=== PATIENT | male | born 1995 | race Caucasian/White ===

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

== ENCOUNTER → 2017-01-22 | Outpatient (CLI) | payer OTHER ==
--- NOTE | 2017-01-22 13:18 | DIAGNOSTIC IMAGING REPORT ---
LEFT ANKLE MIN 3 VIEWS CLINICAL HISTORY: LEFT ANKLE PAIN pain COMPARISON: None. DISCUSSION: Possible 3 mm osteochondral defect articular services medial tibia. All remaining osseous structures are unremarkable. Subtalar joint is intact. There is no evidence for soft tissue swelling. IMPRESSION: Possible small 3 mm osteochondral defect articular surface of the medial tibia. Study is otherwise negative. The above report was generated using voice recognition software. It may contain grammatical, syntax or spelling errors. Electronically signed by: Bill Carson M.D. 01/22/2017 1:15 PM Dictated Date/Time: 01/22/2017 1:13 PM LEFT ANKLE MIN 3 VIEWS CLINICAL HISTORY: LEFT ANKLE PAIN COMPARISON: None. DISCUSSION: Mild bimalleolar soft tissue swelling is suggested. The bones and joint spaces appear intact. There is no evidence of fracture or dislocation. Ankle mortise appears normal. IMPRESSION: No evidence of an acute bony process. Electronically signed by: Trenton Trammell M.D. 07/24/2015 4:03 PM LEFT ANKLE MIN 3 VIEWS CLINICAL HISTORY: LEFT ANKLE PAIN COMPARISON: 07/24/2015. DISCUSSION: Mild bimalleolar soft tissue swelling is suggested. The bones and joint spaces appear intact. There is no evidence of fracture or dislocation. Ankle mortise appears normal. IMPRESSION: No acute bony abnormality. 3 mm osteochondral defect medial articular services distal tibia possibly pre-existing. Electronically signed by: Bill Carson M.D. 01/22/2017 1:17 PM Dictated Date/Time: 01/22/2017 1:13 PM
== END | disposition home or self-care (01) ==
LOC: C.RDSM 01-21 13:57
PROVIDERS: ATTEND Internal Medicine
DX: M25.572 Pain in left ankle and joints of left foot (principal)

== ENCOUNTER → 2017-02-06 | Outpatient (CLI) | payer OTHER ==
--- NOTE | 2017-02-06 07:55 | DIAGNOSTIC IMAGING REPORT ---
LEFT LOWER EXT NONJOINT W/O HISTORY: 21 years-old Male [employer] COMPARISON: Left ankle radiographs 01/22/2017, left heel radiographs 10/24/2016 TECHNIQUE: Multiplanar multisequence noncontrast MR images of the left hindfoot were obtained. FINDINGS: There is a small ankle joint effusion. Scattered patchy areas of edema-like increased increased T2 marrow signal are seen within the medial malleolus, distal posterior tibial plafond, posterior facet of the talus, posterior superior calcaneus and distal fibula without associated fracture. Additionally, there is a 1.3 x 0.9 x 1.8 cm os trigonum with mild amount of edema seen at the synchondrosis with the posterior aspect of the talus suggesting os trigonum syndrome with moderate amount of associated fluid within the posterior recess. Mild bone marrow edema is also seen within the plantar aspect of the calcaneus adjacent to the plantar fascial insertion site. There is thickening of the medial cord plantar fascia with intermediate intrasubstance T2 signal and mild surrounding edema, nicely seen on image 26 of the coronal STIR series compatible with acute on chronic plantar fasciitis with minimal spurring of the plantar insertion site about the calcaneus. No high-grade or full-thickness plantar fascia tear is seen. No evidence of plantar fibromatosis. The imaged Achilles tendon is intact. The tibialis posterior, flexor digitorum longus and flexor hallucis longus tendons are intact. There is trace fluid surrounding the flexor digitorum longus along the infra malleolar groove suggesting tenosynovitis. The peroneal longus and brevis tendons are intact. There is mild thickening with intermediate T2 signal of the peroneus brevis tendon compatible with tendinosis. The extensor tendons are intact. There is thickening with intermediate T2 signal of the anterior talofibular ligament compatible with chronic sprain. There is also evidence of chronic sprain involving the calcaneofibular ligament. Posterior talofibular ligament and syndesmotic ligaments are intact. IMPRESSION: 1. Moderate acute on chronic plantar fasciitis with mild enthesopathy of the plantar insertion site about the calcaneus. Mild associated adjacent bone marrow edema of the plantar calcaneus is likely reactive. 2. Evidence of os trigonum syndrome with moderate amount of fluid within the posterior recess and small joint effusion. 3. Scattered patchy areas of edema-like bone marrow signal throughout the hindfoot as above without fracture are likely reactive changes with bone marrow contusion also in the differential. 4. Chronic sprains of the anterior talofibular and calcaneal fibular ligaments. The above report was generated using voice recognition software. It may contain grammatical, syntax or spelling errors. Electronically signed by: Cristian Leonardo M.D. 02/06/2017 7:53 AM Dictated Date/Time: 02/06/2017 7:41 AM
== END | disposition home or self-care (01) ==
LOC: C.MRI 06:10
PROVIDERS: ATTEND Internal Medicine
DX: M72.2 Plantar fascial fibromatosis (principal); Q68.8 Other specified congenital musculoskeletal deformities

== ENCOUNTER → 2017-02-24 | Outpatient (CLI) | payer OTHER | END | disposition home or self-care (01) | LOC: C.RDSM 12:00 | PROVIDERS: ATTEND Physical Medicine & Rehabilitation Sports Medicine | DX: S83.511A Sprain of anterior cruciate ligament of right knee, initial encounter (principal); X58.XXXA Exposure to other specified factors, initial encounter ==

== ENCOUNTER → 2017-02-27 | Outpatient (CLI) | payer OTHER ==
--- NOTE | 2017-02-27 13:24 | DIAGNOSTIC IMAGING REPORT ---
MRI OF THE RIGHT KNEE WITHOUT CONTRAST CLINICAL HISTORY: Tear of anterior cruciate ligament. COMPARISON STUDY: Right knee radiographs February 24, 2017. TECHNIQUE: Utilizing a 1.5 Fifi magnet and dedicated coil, multiplanar, multiecho imaging of the right knee was performed without intravenous or intraarticular contrast. FINDINGS: Alignment of the right knee is anatomic. This exam is mildly compromised by motion artifact. There is a large right knee joint effusion. There is focal moderate marrow edema within the anterior aspect of the lateral femoral condyle and posterior aspect of the lateral tibial plateau which reflects no edema related to bone contusions. There is a complete tear of the anterior cruciate ligament. The posterior cruciate ligament is intact. The medial collateral ligament and lateral collateral ligament complex are also intact. The menisci are suboptimally assessed on this examination but no meniscal tear is identified. Although the the contusion of the lateral femoral condyle, no additional chondral abnormalities are present. Extensor mechanism is intact. Soft tissue edema is noted posterior to the knee. Note is made of minimal edema within the lateral aspect of the fibular head. No cyst was made of increased T2 signal within the musculature lateral to the proximal shaft of the fibula. IMPRESSION: 1. Complete tear of the anterior cruciate ligament. 2. Large right knee joint effusion. 3. Typical bone contusion seen in the setting of an ACL tear with marrow edema within the lateral femoral condyle and lateral tibial plateau. No fracture. 4. Minimal marrow edema within the lateral aspect of the fibular head and mild adjacent muscular signal abnormality could reflect a muscular strain. 4. No meniscal tear identified although exam mildly compromised by motion artifact. Electronically signed by: Lester Connell M.D. 02/27/2017 1:23 PM Dictated Date/Time: 02/27/2017 11:57 AM
== END | disposition home or self-care (01) ==
LOC: C.MRI 10:53
PROVIDERS: ATTEND Physical Medicine & Rehabilitation Sports Medicine
DX: S83.511A Sprain of anterior cruciate ligament of right knee, initial encounter (principal); X58.XXXA Exposure to other specified factors, initial encounter; M25.461 Effusion, right knee

== ENCOUNTER → 2017-03-18 | Day surgery (SDC) | payer OTHER ==
[2017-03-06 11:09] VITALS: Ht 182.9 cm; Wt 75.0 kg
[~2017-03-18] VITALS: Ht 182.9 cm; Wt 75.0 kg
[~2017-03-18] MED LIST changes: +ATROPINE SULFATE 0.1 MG/ML 5ML SYR IV PRN; +BUPIVACAINE/EPINEPHRINE 0.5% MPF 1:200,000 30 ML VIAL ONE; +CEFAZOLIN 2000 MG/60 ML D5W IV SCH; +CEFTRIAXONE 2000MG IV SCH; +CEFTRIAXONE SOD 2 GM VIAL IV ONE; +DEXAMETHASONE SOD INJ 4 MG/ML VIAL IV PRN; +DEXAMETHASONE SOD INJ 4 MG/ML VIAL ONE; +EpHEDrine SULFATE INJ 50 MG/ML AMP IV PRN; +EpINEphrine INJ 1MG/ML AMP 1 MG/ML AMP ONE; +FENTANYL CITRATE INJ 50 MCG/1 ML 2 ML VIAL ONE; +KETOROLAC TROMETHAMINE 30 MG/ML VIAL IV. PRN; +LABETALOL HCL IV 5 MG/ML 20ML IV PRN; +LACTATED RINGER'S 1000ML 1,000 ML IV SCH; +LIDOCAINE HCL 1% MPF 2 ML VIAL ONE; +LIDOCAINE HCL 2% 2 ML VIAL (20MG/ML) ONE; +METOCLOPRAMIDE HCL INJ 5 MG/ML 2 ML VIAL IV PRN; +MIDAZOLAM HCL 1 MG/ML 2ML VIAL ONE; +MoRPHine SULFATE 10 MG/ML CARP/VIAL IV PRN; +ONDANSETRON INJ 2 MG/ML 2 ML VIAL IV PRN; +ONDANSETRON INJ 2 MG/ML 2 ML VIAL ONE; +OXYCODONE/ACETAMINOPHEN 5-325 TAB PO PRN; +PHENYLEPHRINE 100MCG/ML 5ML SYR IV PRN; +PROPOFOL IV EMULSION 10 MG/ML 20 ML VIAL IV ONE; +ROPIVACAINE 0.5% 5 MG/ML 30 ML VIAL ONE; +SODIUM CHLORIDE 0.9% 1000ML 1,000 ML IV SCH
--- NOTE | 2017-03-18 06:45 | History & Physical Bridge Note ---
H&P Re-Evaluation Bridge Note: I have examined the patient, reviewed the History & Physical and in the interval since the performance of the History & Physical I have noted the following changes of clinical significance: Patient greeted in registration area prior to entry into [facility]. no changes noted. consent in chart.No changes noted
--- NOTE | 2017-03-18 06:46 | Discharge Instructions ---
Discharge Instructions Date of Service Mar 18, 2017. Visit Reason for Visit: Right Knee Acl Tear Discharge Discharge Diagnosis / Problem: same Discharge Goals Goal(s): Decrease discomfort, Improve function Medications Stopped Medications Name(s): na Restart Stopped Medication(s): use scripts as directed Activity Recommendations Activity Limitations: as noted below Lifting Limitations: until after follow-up appointment Exercise/Sports Limitations: until after follow-up appointment May Resume Sexual Activity: after follow-up appointment Shower/Bathe: keep incision dry Driving or Machine Use: Weightbearing Status: Right partial wear brace Anesthesia . Post Anesthesia Instructions: If you have had General Anesthesia or IV Sedation: * Do not drive today. * Resume driving when surgeon permits. * Do not make important decisions or sign legal documents today. * Call surgeon for: 1. Temperature elevations greater than 101 degrees F. 2. Uncontrollable pain. 3. Excessive bleeding. 4. Persistent nausea and vomiting. 5. Medication intolerance (nausea, vomiting or rash). * For nausea and vomiting use only clear liquids such as: tea, soda, bouillon until nausea subsides, then gradually increase diet as tolerated. * If you have any concerns or questions, call your surgeon's office. If physician is unavailable and it is an emergency, call 911 or go to the nearest emergency room. . Instructions / Follow-Up Instructions / Follow-Up The following instructions are a useful guide to questions you may have after your Anterior Cruciate Ligament Reconstruction surgery. If you have any questions contact the office at . ACTIVITY RECOMMENDATIONS: * Heavy manual labor is not permitted until 4-6 months after surgery. * Sports are not permitted until 6-9 months after surgery. * Return to activity is individualized. * DRIVING: Driving is not permitted until 3-4 weeks after surgery at a minimum. Please ask your doctor when it is safe to resume driving. If you have an automatic vehicle and your left leg has been operated on, then you may begin driving as soon as you are comfortable and can drive safely. * BATHING: You may shower or sponge-bathe immediately after surgery. The dressing will need to be covered with a plastic bag or plastic wrap until the dressing is changed on the fourth or fifth day after surgery. Once the dressing has been changed on the fourth or fifth day after surgery, you may shower and get the incision wet. * Wash with regular soap and water. * Do not bathe (submerge the incision), soak, swim or use a hot tub until the incision is completely healed over with normal skin and the doctor has given the OK to proceed. * There is no need to apply any ointments, powders or salves to your incision. * Do not apply alcohol or hydrogen peroxide directly to the incision. Diluted peroxide (50:50 mixture with sterile saline) may be used to clean dried blood from around the incision area. WORK/SCHOOL: * You may return to sedentary work or school when you are feeling comfortable. This is usually 3-7 days after surgery. * Expect increased discomfort with increased activity. Continue to elevate and ice the leg as much as possible. DIET: * Resume previous diet. MEDICATIONS: * You will have a prescription for pain medication and an anti-inflammatory medication after surgery. Use the pain pills for severe pain and the anti-inflammatory for less severe pain. * Once the pain pills have run out, try to use the anti-inflammatory. If this is not effective then contact the office for assistance. * The pain medication may cause nausea, constipation and sleepiness. You should see how they affect you before driving or similar activity. * The anti-inflammatory may cause stomach upset and bleeding. If this occurs, let your doctor know immediately . * Some patients may need blood clot prevention. This can be done with either a pill or a simple shot. Your doctor will advise you on when to begin these medications and how to take them. * Do not take aspirin or other anti-inflammatory products (i.e. Advil or Aleve ) if taking blood thinner medication. * Take a stool softener like Colace or a stimulant like Senokot to prevent constipation. SPECIAL CARE INSTRUCTIONS: The following instructions are a useful guide to questions you may have after your surgery. If you have any questions contact the office at . ICE: * You have the option of an ice cooler, gel packs or ice bags. * If you have an ice cooler, refer to the instructions for that device. * If you do not have an ice cooler, then you will need to use ice bags or gel packs. * Do not apply ice directly to the skin. * Use a thin dressing or stockinet between the skin and ice bag. * Apply ice for 20-30 minutes and repeat every 2-4 hours. This is especially important for the first 7-10 days after surgery. * Once the pain improves, use ice as needed. * The ice cooler can be used continuously. ELEVATION: * Keep your leg elevated at or above the level of your heart as much as possible. * Expect some increased discomfort and swelling if you are standing for any length of time. * When lying down, avoid placing anything under your knee. Rather, prop your leg up by placing several pillows under your heel or calf. DRESSING: * Your dressing will be changed at your first therapy appointment approximately 4-5 days after surgery. * Band-Aids, tape strips or gauze may be applied. You may then change your dressing daily. * Always wash your hands prior to touching the incision area. * Reapply dressing followed by the Daniel wrap or [employer]hospital insurance representative stockinet, ice cooling pad and then the brace. * Once the stitches are removed, you may leave the wound open to air or cover with an Daniel Bandage or [employer]hospital insurance representative stockinet. * If you have been given a white elastic stocking (CORRY hose), wear as much as possible for the first 1-3 weeks depending on swelling. * Expect some bloody drainage for the first few days after surgery. * Leave the tape strips in place for 5-7 days. * Band-Aids and gauze may be changed daily. CRUTCHES: * You will need to use crutches after surgery. * Until your first doctor's appointment, you must use your crutches at all times when walking and should put no more than 50% of your normal weight on the surgical leg. * After your first doctor's appointment, you may gradually progress to full weight bearing and discontinue crutches as tolerated under the guidance of your therapist. * If you have had a microfracture procedure done, you may be advised to be non- weight bearing for up to 6 weeks. BRACE: * After surgery, you will be placed into a range of motion brace locked with your leg straight. This brace is to be worn at all times when walking (even with the crutches) and sleeping until your first doctors appointment. * The brace may be removed for therapy. * After your first therapy appointment, your therapist will open the brace to allow bending of the knee once your muscles are working better. * Until your first doctor's appointment, you should sleep with your brace locked with your knee fully straight. * If you have chosen to use a functional ACL brace then this brace will be supplied about 2-3 months after your surgery. During that time, you will attend therapy 2- 3 times per week. You will also need to do daily exercises for range of motion and strength as instructed. PROBLEMS/QUESTIONS: * If you have any problems such as severe pain, numbness, tingling or high fevers or if you have any questions, please contact the office at [phone]. * It is not uncommon to have some numbness and tingling after the surgery especially if you have had a nerve block done. This should gradually improve over the first 1- 2 days. If this persists longer or worsens then contact the office. FOLLOW UP VISIT: * If not already scheduled, please call the office at to schedule follow-up appointments for approximately 10 days and one month after surgery followed by monthly appointments thereafter. Diet Recommendations Recommended Home Diet: resume previous diet Procedures Procedures Performed: acl see op note Pending Studies Studies pending at discharge: no Medical Emergencies . Who to Call and When: Medical Emergencies: If at any time you feel your situation is an emergency, please call 911 immediately. . Non-Emergent Contact Non-Emergency issues call your: Specialist Call Non-Emergent contact if: you have a fever, temperature is above 101.5, wound has increased drainage, wound has increased redness, wound has increased pain . . "Provider Documentation" section prepared by Narayan Barroso. .
--- NOTE | 2017-03-18 11:07 | [facility] Post Operative Brief Note ---
Immediate Operative Summary Operative Date Mar 18, 2017. Pre-Operative Diagnosis Right Knee ACL Tear Post-Operative Diagnosis Same Procedure(s) Performed Right Knee Arthroscopic Anterior Cruciate Ligament Reconstruction With Patellar Tendon Autograft/EUA Surgeon Dr. Barroso Installation Engineer Surgeon(s) Dr. Bosch; Barry Chun PA-C Estimated Blood Loss 50 mL Findings acl tear/chondralmalacia medial odd facet patella Fluids (cc crystalloids) 900cc Specimens None Drains none Anesthesia LMA/block Complication(s) None Disposition Recovery Room / PACU
--- NOTE | 2017-03-18 11:28 | OPERATIVE REPORT ---
DATE OF OPERATION: 03/18/2017 SURGEON: Dr. Barroso. CHIPS SCREEN TENDER: Danitza. SECOND CHIPS SCREEN TENDER: Marco Chun PA-C PREOPERATIVE DIAGNOSIS: Subacute anterior cruciate ligament tear, right knee. POSTOPERATIVE DIAGNOSIS: Same. OPERATIONS PERFORMED: 1. Exam under anesthesia. 2. Diagnostic arthroscopy. 3. Arthroscopic chondroplasty offset patella. 4. Endoscopic ACL reconstruction using central one-third patellar tendon autograft. 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 Physical exam, x-ray and MRI consistent with ACL injury. He has full range of motion at present, good quad tone, good hamstring tone. DESCRIPTION OF PROCEDURE: The patient appropriately identified, site verified, consent verified, 2 grams of Ancef confirmed as being given. The knee was examined revealing a grossly positive Andrew, a grade 1 pivot, negative medial or lateral collateral injury, negative posterolateral or posteromedial injury, PCL was normal. He was then prepped and draped in usual routine fashion. Tourniquet inflated to 275 mmHg after exsanguination of limb with a rubber Esmarch bandage for a total of 69 minutes. An anterior approach to the extensor mechanism was made slightly based medially. Full thickness flaps raised, peritenon opened and then central 1/3 patellar tendon then harvested with bone blocks being 20 x 10 x 5 off the patella and 30 x 10 x 5 off the tibia. They were tagged with #2 Ethibond on the tibial side and the TightRope on the patellar side. It was then placed in a sterile specimen container. It fit through 11 mm tibial tunnel and 10 mm femoral tunnel. The knee was then scoped. Inframedial and infralateral portals made through the harvest site. Inspection of the joint revealed the opposite side injury to the chondromalacia was probably unrelated. It was debrided. Rest of the patella was normal. The medial and lateral gutters were clean. The medial meniscus had some minor posterior edge fraying that did not require any surgery. The articular condyle medially and the medial tibial plateau were excellent. The PCL was intact. The stump of the ACL was a high femoral tear. It was debrided. Limited notchplasty was performed. The lateral meniscus was normal. The lateral condyle was normal. The guide was then placed at 65 mm in the anteromedial aspect and the subperiosteal aspect of the tibia then made. A good horizontal position and medial position was made and 11 mm tunnel made. All the bone debris removed. The stump of the ACL origin off the femur was left in place and the transtibial technique allowed this to be placed right in the center, guide pin passed, was then drilled with the drill bit but that had cracked and the pieces were removed without any difficulty verified by x-ray. It was then drilled with another drill bit and a 30 mm socket made. All bone debris removed. The graft was then passed with the Arthrex passer and then secured on the femur with a TightRope, deployed in excellent position and good fixation. It was then TightRope into position and the patellar block docked very well. The graft was then tensioned at 10 degrees and fixed on the tibia into a trough with 2 bone andres with excellent fixation. The knee was then reexamined. There was full hyperextension and full flexion and Andrew and pivot shift were negative. The wound was then irrigated. The chart trimming was used to graft the patellar harvest site off the patella. The peritenon closed. The fascia over the tibial tunnel closed with 0 Vicryl, subcutaneous layer with 2-0 plain and the skin with a running subcuticular 0 Prolene. Appropriate dressing was applied and the patient transferred to the recovery room in satisfactory condition having tolerated the procedure well. Estimated blood loss with tourniquet release was 50 mL and crystalloid 900 mL. The patient received 2 grams of Ancef preop, DVT prophylaxis with aspirin b.i.d. 325 starting tomorrow. I attest to the content of the Intraoperative Record and any orders documented therein. Any exception s are noted below.
[2017-03-18] MEDS: FENTANYL CITRATE INJ 50 MCG/1 ML 2 ML VIAL IV PRN ×2 (11:32→11:46)
--- NOTE | 2017-03-18 12:02 | Anesthesia Progress Nt - [facility] ---
Anesthesia Post Op Note Date & Time Mar 18, 2017 at 12:02 Vital Signs Pain Intensity: 4 Vital Signs Past 12 Hours Date Time Temp Pulse Resp B/P (MAP) Pulse Ox O2 Delivery O2 Flow Rate FiO2 03/18/17 12:00 37.4 03/18/17 11:56 156/79 (101) 03/18/17 11:55 87 14 03/18/17 11:55 90 14 99 03/18/17 11:51 143/74 (104) 03/18/17 11:50 70 5 98 03/18/17 11:50 70 5 03/18/17 11:46 160/95 (125) 03/18/17 11:45 83 11 100 03/18/17 11:45 83 11 03/18/17 11:45 Room Air 03/18/17 11:41 151/94 (104) 03/18/17 11:40 77 10 03/18/17 11:40 79 10 100 03/18/17 11:36 136/86 (96) 03/18/17 11:35 68 21 03/18/17 11:35 67 21 100 03/18/17 11:31 148/94 (104) 03/18/17 11:30 88 14 03/18/17 11:30 88 14 100 03/18/17 11:26 145/92 (106) 03/18/17 11:25 92 15 100 03/18/17 11:25 94 15 03/18/17 11:21 164/97 (113) 03/18/17 11:20 99 11 03/18/17 11:20 98 11 100 03/18/17 11:15 36.4 96 12 164/97 100 Diffusion Mask 5 03/18/17 09:05 0 03/18/17 09:01 126/77 03/18/17 09:00 83 13 99 03/18/17 09:00 85 03/18/17 08:56 110/83 03/18/17 08:55 90 23 99 03/18/17 08:55 91 03/18/17 08:51 123/77 03/18/17 08:50 87 03/18/17 08:50 88 18 99 03/18/17 08:46 129/72 03/18/17 08:45 84 03/18/17 08:45 83 21 99 03/18/17 08:41 129/73 03/18/17 08:40 88 03/18/17 08:40 88 22 100 03/18/17 08:39 130/75 03/18/17 08:35 85 03/18/17 08:35 89 0 99 03/18/17 08:30 80 0 98 03/18/17 08:30 84 03/18/17 08:25 82 0 97 03/18/17 08:25 81 03/18/17 08:20 89 0 94 03/18/17 08:20 86 03/18/17 08:15 90 0 99 03/18/17 08:15 88 03/18/17 08:10 82 0 98 03/18/17 08:10 87 03/18/17 08:05 76 0 99 03/18/17 08:05 90 03/18/17 08:00 82 03/18/17 08:00 82 0 98 03/18/17 07:05 36.9 84 16 130/75 (93) 97 Room Air Notes Mental Status: alert / awake / arousable, participated in evaluation Pt Amnestic to Procedure: Yes Nausea / Vomiting: adequately controlled Pain: adequately controlled Airway Patency, RR, SpO2: stable & adequate BP & HR: stable & adequate Hydration State: stable & adequate Anesthetic Complications: no major complications apparent
[2017-03-18 12:09] VITALS: TEMP 36.9
[2017-03-18 13:24] VITALS: BP 144/81; PULSE 88; O2SAT 98
--- NOTE | 2017-03-18 13:29 | [facility] Operative Report ---
Operative Report Operative Date Mar 18, 2017. Pre-Operative Diagnosis Right Knee ACL Tear Post-Operative Diagnosis Right knee Same Procedure(s) Performed Right Knee Arthroscopic Anterior Cruciate Ligament Reconstruction With Patellar Tendon Autograft/EUA Surgeon Dr. Barroso Trimmer Buffing Wheel Surgeon(s) Dr. Bosch; Barry Chun PA-C Estimated Blood Loss 50 mL Findings Right knee anterior cruciate ligament tear Fluids (cc crystalloids) 900cc Specimens None Drains none Complication(s) None Disposition Recovery Room / PACU Indications This 21-year-old white male presented to the office with complaints of right knee instability after injuring himself during a sporting event. There was no instability prior to his injury. X-ray and MRI were obtained. He elected to proceed with surgical intervention after being educated about potential risks and outcomes. Description of Procedure Patient was administered a regional block and then taken to the operating room where he was given general anesthesia. He was prepped and draped in usual sterile fashion. Please see Dr. Barroso's operative report for specifics of the procedure. I was present for the entire case from initial patient positioning through final wound closure. Assistance was provided in patient positioning, arthroscopy, graft harvest, graft placement, tissue traction, hemostasis, hardware placement, and final wound closure. Patient was taken to the recovery room in satisfactory condition. I attest to the content of the Intraoperative Record and any orders documented therein. Any exceptions are noted below.
== END | disposition home or self-care (01) ==
LOC: X.SURG 06:45
PROVIDERS: ATTEND Physical Medicine & Rehabilitation Sports Medicine
DX: S83.511A Sprain of anterior cruciate ligament of right knee, initial encounter (principal); X50.1XXA Overexertion from prolonged static or awkward postures, initial encounter; Y93.66 Activity, soccer; Y92.322 Soccer field as the place of occurrence of the external cause

== ENCOUNTER → 2017-04-28 | Outpatient (CLI) | payer OTHER | END | disposition home or self-care (01) | LOC: C.RDSM 08:00 | PROVIDERS: ATTEND Physical Medicine & Rehabilitation Sports Medicine | DX: S83.511A Sprain of anterior cruciate ligament of right knee, initial encounter (principal); X58.XXXA Exposure to other specified factors, initial encounter ==

== ENCOUNTER → 2018-02-02 | Outpatient (CLI) | payer OTHER | END | disposition home or self-care (01) | LOC: C.RDSM 15:23 | PROVIDERS: ATTEND Physical Medicine & Rehabilitation Sports Medicine | DX: M25.561 Pain in right knee (principal) ==

== ENCOUNTER → 2018-02-03 | Outpatient (CLI) | payer OTHER ==
--- NOTE | 2018-02-03 08:12 | DIAGNOSTIC IMAGING REPORT ---
R LOWER EXT JOINT WITHOUT CLINICAL HISTORY: INSTABILITY RT KNEE pain TECHNIQUE: Multi axial MRI acquisition COMPARISON STUDY: 02/27/2017 FINDINGS: Limited study technically due to moderate patient motion. Interval anterior cruciate ligament repair. The graft shows evidence for a partial tear. Posterior cruciate ligamentous intact. Findings of mild contusion central aspect lateral femoral condyle. Joint effusion is present. Several synechiae of the suprapatellar bursa. Medial and lateral collateral ligaments are intact. The menisci show no evidence for meniscal tear. IMPRESSION: 1. Interval findings of an anterior cruciate ligament repair procedure. 2. Partial tear of the anterior cruciate ligament graft. 3. Joint effusion. 4. Small contusion central aspect lateral femoral condyle. The above report was generated using voice recognition software. It may contain grammatical, syntax or spelling errors. Electronically signed by: Bill Carson M.D. 02/03/2018 8:10 AM Dictated Date/Time: 02/03/2018 8:06 AM
== END | disposition home or self-care (01) ==
LOC: C.MRI 07:03
PROVIDERS: ATTEND Physician Assistant
DX: M25.361 Other instability, right knee (principal); T84.498A Other mechanical complication of other internal orthopedic devices, implants and grafts, initial encounter; X58.XXXA Exposure to other specified factors, initial encounter; M25.462 Effusion, left knee; S80.01XA Contusion of right knee, initial encounter

== ENCOUNTER → 2018-02-10 | Day surgery (SDC) | payer OTHER ==
[2018-02-09 08:58] VITALS: Ht 182.1 cm; Wt 76.4 kg
[~2018-02-10] VITALS: Ht 182.1 cm; Wt 76.4 kg
[~2018-02-10] MED LIST changes: -CEFAZOLIN 2000 MG/60 ML D5W IV SCH; +CEFAZOLIN 2000MG IV PUSH 15 ML IV SCH; +CHECK SCOPOLAMINE PATCH PLACEMENT SCH; -DEXAMETHASONE SOD INJ 4 MG/ML VIAL IV PRN; +EpINEphrine HCL INJ 1 MG/ML 1ML SYRINGE ONE; -EpINEphrine INJ 1MG/ML AMP 1 MG/ML AMP ONE; -IBUP-103 PO; +KETAMINE HCL INJ 50 MG/ML 10 ML VIAL ONE; -LABETALOL HCL IV 5 MG/ML 20ML IV PRN; -METOCLOPRAMIDE HCL INJ 5 MG/ML 2 ML VIAL IV PRN; -MoRPHine SULFATE 10 MG/ML CARP/VIAL IV PRN; +NURSING VERBAL MED ORDER ONE; -PROPOFOL IV EMULSION 10 MG/ML 20 ML VIAL IV ONE; +PROPOFOL IV EMULSION 10 MG/ML 20 ML VIAL ONE; +SCOPOLAMINE 1.5 MG TDSY TD ONE; +SODIUM CHLORIDE 0.9% INJ 10 ML VIAL ONE; +SUCCINYLCHOLINE CHLORIDE 20 MG/ML 10 ML VIAL IV ONE
--- NOTE | 2018-02-10 06:45 | History & Physical Bridge Note ---
H&P Re-Evaluation Bridge Note: I have examined the patient, reviewed the History & Physical and in the interval since the performance of the History & Physical I have noted the following changes of clinical significance: consent obtained.No changes noted
--- NOTE | 2018-02-10 06:47 | Discharge Instructions ---
Discharge Instructions Date of Service Feb 10, 2018. Visit Reason for Visit: Right Knee Acl Tear Discharge Discharge Diagnosis / Problem: same Discharge Goals Goal(s): Decrease discomfort, Improve function Medications Stopped Medications Name(s): na Restart Stopped Medication(s): use scripts as directed. Activity Recommendations Activity Limitations: as noted below Lifting Limitations: until after follow-up appointment Exercise/Sports Limitations: until after follow-up appointment May Resume Sexual Activity: when tolerated Shower/Bathe: keep incision dry Weightbearing Status: Right partial Anesthesia . Post Anesthesia Instructions: If you have had General Anesthesia or IV Sedation: * Do not drive today. * Resume driving when surgeon permits. * Do not make important decisions or sign legal documents today. * Call surgeon for: 1. Temperature elevations greater than 101 degrees F. 2. Uncontrollable pain. 3. Excessive bleeding. 4. Persistent nausea and vomiting. 5. Medication intolerance (nausea, vomiting or rash). * For nausea and vomiting use only clear liquids such as: tea, soda, bouillon until nausea subsides, then gradually increase diet as tolerated. * If you have any concerns or questions, call your surgeon's office. If physician is unavailable and it is an emergency, call 911 or go to the nearest emergency room. . Instructions / Follow-Up Instructions / Follow-Up The following instructions are a useful guide to questions you may have after your Anterior Cruciate Ligament Reconstruction surgery. If you have any questions contact the office at . ACTIVITY RECOMMENDATIONS: * Heavy manual labor is not permitted until 4-6 months after surgery. * Sports are not permitted until 6-9 months after surgery. * Return to activity is individualized. * DRIVING: Driving is not permitted until 3-4 weeks after surgery at a minimum. Please ask your doctor when it is safe to resume driving. If you have an automatic vehicle and your left leg has been operated on, then you may begin driving as soon as you are comfortable and can drive safely. * BATHING: You may shower or sponge-bathe immediately after surgery. The dressing will need to be covered with a plastic bag or plastic wrap until the dressing is changed on the fourth or fifth day after surgery. Once the dressing has been changed on the fourth or fifth day after surgery, you may shower and get the incision wet. * Wash with regular soap and water. * Do not bathe (submerge the incision), soak, swim or use a hot tub until the incision is completely healed over with normal skin and the doctor has given the OK to proceed. * There is no need to apply any ointments, powders or salves to your incision. * Do not apply alcohol or hydrogen peroxide directly to the incision. Diluted peroxide (50:50 mixture with sterile saline) may be used to clean dried blood from around the incision area. WORK/SCHOOL: * You may return to sedentary work or school when you are feeling comfortable. This is usually 3-7 days after surgery. * Expect increased discomfort with increased activity. Continue to elevate and ice the leg as much as possible. DIET: * Resume previous diet. MEDICATIONS: * You will have a prescription for pain medication and an anti-inflammatory medication after surgery. Use the pain pills for severe pain and the anti-inflammatory for less severe pain. * Once the pain pills have run out, try to use the anti-inflammatory. If this is not effective then contact the office for assistance. * The pain medication may cause nausea, constipation and sleepiness. You should see how they affect you before driving or similar activity. * The anti-inflammatory may cause stomach upset and bleeding. If this occurs, let your doctor know immediately . * Some patients may need blood clot prevention. This can be done with either a pill or a simple shot. Your doctor will advise you on when to begin these medications and how to take them. * Do not take aspirin or other anti-inflammatory products (i.e. Advil or Aleve ) if taking blood thinner medication. * Take a stool softener like Colace or a stimulant like Senokot to prevent constipation. SPECIAL CARE INSTRUCTIONS: The following instructions are a useful guide to questions you may have after your surgery. If you have any questions contact the office at . ICE: * You have the option of an ice cooler, gel packs or ice bags. * If you have an ice cooler, refer to the instructions for that device. * If you do not have an ice cooler, then you will need to use ice bags or gel packs. * Do not apply ice directly to the skin. * Use a thin dressing or stockinet between the skin and ice bag. * Apply ice for 20-30 minutes and repeat every 2-4 hours. This is especially important for the first 7-10 days after surgery. * Once the pain improves, use ice as needed. * The ice cooler can be used continuously. ELEVATION: * Keep your leg elevated at or above the level of your heart as much as possible. * Expect some increased discomfort and swelling if you are standing for any length of time. * When lying down, avoid placing anything under your knee. Rather, prop your leg up by placing several pillows under your heel or calf. DRESSING: * Your dressing will be changed at your first therapy appointment approximately 4-5 days after surgery. * Band-Aids, tape strips or gauze may be applied. You may then change your dressing daily. * Always wash your hands prior to touching the incision area. * Reapply dressing followed by the Daniel wrap or Tubi-pad cutter stockinet, ice cooling pad and then the brace. * Once the stitches are removed, you may leave the wound open to air or cover with an Daniel Bandage or Tubi-pad cutter stockinet. * If you have been given a white elastic stocking (CORRY hose), wear as much as possible for the first 1-3 weeks depending on swelling. * Expect some bloody drainage for the first few days after surgery. * Leave the tape strips in place for 5-7 days. * Band-Aids and gauze may be changed daily. CRUTCHES: * You will need to use crutches after surgery. * Until your first doctor's appointment, you must use your crutches at all times when walking and should put no more than 50% of your normal weight on the surgical leg. * After your first doctor's appointment, you may gradually progress to full weight bearing and discontinue crutches as tolerated under the guidance of your therapist. * If you have had a microfracture procedure done, you may be advised to be non- weight bearing for up to 6 weeks. BRACE: * After surgery, you will be placed into a range of motion brace locked with your leg straight. This brace is to be worn at all times when walking (even with the crutches) and sleeping until your first doctors appointment. * The brace may be removed for therapy. * After your first therapy appointment, your therapist will open the brace to allow bending of the knee once your muscles are working better. * Until your first doctor's appointment, you should sleep with your brace locked with your knee fully straight. * If you have chosen to use a functional ACL brace then this brace will be supplied about 2-3 months after your surgery. During that time, you will attend therapy 2- 3 times per week. You will also need to do daily exercises for range of motion and strength as instructed. PROBLEMS/QUESTIONS: * If you have any problems such as severe pain, numbness, tingling or high fevers or if you have any questions, please contact the office at [phone]. * It is not uncommon to have some numbness and tingling after the surgery especially if you have had a nerve block done. This should gradually improve over the first 1- 2 days. If this persists longer or worsens then contact the office. FOLLOW UP VISIT: * If not already scheduled, please call the office at to schedule follow-up appointments for approximately 10 days and one month after surgery followed by monthly appointments thereafter. Diet Recommendations Recommended Home Diet: resume previous diet Procedures Procedures Performed: see op note Pending Studies Studies pending at discharge: no Medical Emergencies . Who to Call and When: Medical Emergencies: If at any time you feel your situation is an emergency, please call 911 immediately. . Non-Emergent Contact Non-Emergency issues call your: Specialist Call Non-Emergent contact if: temperature is above 101.5, wound has increased drainage, wound has increased redness, wound has increased pain . . "Provider Documentation" section prepared by Narayan Barroso. .
--- NOTE | 2018-02-10 10:13 | [facility] Post Operative Brief Note ---
Immediate Operative Summary Operative Date Feb 10, 2018. Pre-Operative Diagnosis RIGHT ACL TEAR Post-Operative Diagnosis SAME PREOP Procedure(s) Performed Right Knee Arthroscopy, Open Revision Anterior Cruciate Ligament Reconstruction With Quad Tendon Autograft, Lateral Meniscus Repair, hardware removal Surgeon DR. Wisam MIGUEL Product Safety Manager Surgeon(s) ORLY TORRES PA-C Estimated Blood Loss 50 ML Findings Consistent with Post-Op Diagnosis Fluids (cc crystalloids) 1500cc Specimens NONE Drains None Anesthesia Type General Regional Complication(s) none Disposition Accompanied Pt To Recover: no Overlapping Procedure I was immediately available: during the entire case
[2018-02-10] MEDS: HYDROmorphone INJ 2 MG/ML SYR/VIAL IV PRN ×2 (10:42→11:03)
--- NOTE | 2018-02-10 11:47 | OPERATIVE REPORT ---
DATE OF OPERATION: 02/10/2018 SURGEON: Narayan Barroso MD. EQUIPMENT WASHER: Marco Chun PA-C. No resident or fellow available. PREOPERATIVE DIAGNOSIS: Anterior cruciate ligament graft tear, a high level competition, right knee. POSTOPERATIVE DIAGNOSIS: Anterior cruciate ligament graft tear, a high level competition, right knee. OPERATION PERFORMED: 1. Revision ACL reconstruction with quad tendon autograft. 2. Removal of bone andres. 3. Small partial lateral meniscectomy. 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 Preoperative physical exam, x-ray and MRI scan consistent with diagnosis. DESCRIPTION OF PROCEDURE: Patient appropriately identified, site verified, consent verified, 2 grams of Ancef confirmed as being given. The right knee was examined revealing a positive Andrew and trace positive pivot shift. The medial collateral ligament at 30 degrees, a grade 1 with solid endpoint, had extension, had no opening. The lateral collateral ligament was intact. The posterolateral corner was intact. The posteromedial corner was intact. The pivot shift was only trace. There was no finding for an ALL injury by exam under anesthesia or by x-ray. The right knee was then prepped and draped in the usual routine fashion. The knee was then arthroscoped, inframedial infralateral portals made. An inspection of the joint revealed healthy articular surfaces of all 3 compartments. The medial meniscus was normal. The ACL graft was a high femoral origin tear. There was marked hemorrhage throughout the graft. The graft looked like it was very healthy, had a lot of vascularity to it and hemarthrosis was only from that as there was no major meniscal pathology in the red-red zone and no other articular injury. The stump of the ACL was then debrided. Limited notchplasty performed and drop-off points were identified. The lateral meniscus had a small white on white tear in the posterior 3rd which was trimmed, less than 10% of the meniscus was removed. The peripheral meniscus was healthy, articular surfaces were all good. Once the limited notchplasty was completed, a small incision was then made over the anterior knee where the andres were put in before. They were removed using the bone liver, no problems there. Subperiosteal dissection was then carried out to the anteromedial tibia. Tibial drill guide was then placed into the joint and the guide pin passed right through the center of the old insertion. Serial reaming was then carried up to a 10. All soft tissue was removed. Tunnel position was excellent. The old femoral attachment site was left in place and then all of it was removed, then using the guides the pin was then passed up through the femur in the excellent position and serial reaming carried up from 8-10 mm. All soft tissue and bone debris removed. The graft was then harvested through an anterior incision. At this point in time, the tourniquet was inflated to 275 mmHg for a total tourniquet time of about 75 minutes. The graft was harvested with it being full thickness quad with bone blocks being 20 mm in length and 10 mm in width and about a 5 mm in depth and then in length was soft tissue castillo was an additional 8 cm. This area was then trimmed to fit through the 10 mm sleeve with TightRope on the bone block and baseball stitch #2 FiberWire 2 sutures on the distal ends of the soft tissue. It was then placed in a sterile specimen container. The area anteriorly was then irrigated and the area closed with multiple #1 Vicryl sutures with the knee at 90 degrees of flexion. This allowed anatomic repair. The patella was intact. There was no sign of any fracture. Small bridge was left between the previous graft and the present graft. This wound was then closed at the end using #2 plain and stainless steel clips. The graft was then passed using the Arthrex TightRope technique and secured on the femur with excellent fixation, was pulled distally and then secured on the tibia with a 15 mm malleolar screw with washer, 4.5 malleolar screw with excellent purchase on the cortex and excellent tension on the sutures. The wound was then irrigated and these sutures were then looped back over the screw into the soft tissue and close the periosteum and soft tissue over the screw and washer. Hopefully there will not be any irritation. The wound was then irrigated and closed with 2-0 plain and stainless steel clips. All wounds were dressed with Xeroform, 4 x 4 gauze, sterile Webril, ABD pads, Daniel bandage, and a range of motion brace locked at 0 degrees. Overall prognosis for this knee is relatively good based on the fact there was no major meniscal injury and no major articular injury; however, being a revision obviously the retear rate is higher. The patient and family all understand this. He is competing at high level. The present injury was based on pure trauma. DVT prophylaxis with aspirin. ESTIMATED BLOOD LOSS: 50 mL. No specimens pending. I attest to the content of the Intraoperative Record and any orders documented therein. Any exceptions are noted below. YADI
[2018-02-10 12:14] VITALS: TEMP 37.2
--- NOTE | 2018-02-10 12:18 | Anesthesia Progress Nt - [facility] ---
Anesthesia Post Op Note Date & Time Feb 10, 2018 at 12:18 Vital Signs Pain Intensity: 4 Vital Signs Past 12 Hours Date Time Temp Pulse Resp B/P (MAP) Pulse Ox O2 Delivery O2 Flow Rate FiO2 02/10/18 12:01 91 11 147/71 99 02/10/18 12:01 88 11 02/10/18 11:59 37.4 83 12 147/71 97 Room Air 02/10/18 11:56 61 8 02/10/18 11:56 62 8 145/83 98 02/10/18 11:51 59 17 02/10/18 11:51 62 17 142/79 98 02/10/18 11:46 62 13 02/10/18 11:46 64 13 148/79 96 02/10/18 11:41 79 19 140/46 99 02/10/18 11:41 79 19 02/10/18 11:36 73 16 02/10/18 11:36 74 16 149/85 92 02/10/18 11:31 79 11 02/10/18 11:31 77 11 157/92 100 02/10/18 11:26 69 12 02/10/18 11:26 66 12 151/88 98 02/10/18 11:21 78 6 02/10/18 11:21 75 6 151/82 100 02/10/18 11:17 146/91 02/10/18 11:16 86 11 93 02/10/18 11:16 83 11 02/10/18 11:11 80 16 127/89 97 02/10/18 11:11 82 16 02/10/18 11:06 93 10 153/95 96 02/10/18 11:06 90 10 02/10/18 11:01 95 13 02/10/18 11:01 93 13 168/99 100 02/10/18 10:56 80 15 02/10/18 10:56 78 15 142/90 99 02/10/18 10:51 81 19 150/87 99 02/10/18 10:51 81 19 02/10/18 10:50 147/94 02/10/18 10:46 77 10 151/99 99 02/10/18 10:46 77 10 02/10/18 10:41 88 17 167/90 100 02/10/18 10:41 88 17 02/10/18 10:36 79 16 8/14/18 10:36 78 16 156/98 100 14/18 10:31 84 13 1418 10:31 82 13 145/101 100 18 10:26 98 10 1418 10:26 98 10 132/80 100 14/18 10:24 142/70 14/18 10:21 98 9 100 14/18 10:21 98 9 18 10:19 142/90 02/10/18 10:19 36.9 99 12 142/90 100 Mask 6 02/10/18 07:56 0 02/10/18 07:55 56 17 100 18 07:55 56 02/10/18 07:50 82 15 18 07:46 116/70 1418 07:45 64 14/18 07:45 63 16 100 1418 07:40 62 14/18 07:40 61 11 115/71 100 18 07:36 115/63 18 07:35 64 15 100 14/18 07:35 60 14/18 07:31 120/65 14/18 07:30 51 14/18 07:30 50 13 100 18 07:26 133/68 02/10/18 07:25 58 29 100 1418 07:25 58 14/18 07:22 125/75 14/18 07:20 55 14 100 14/18 07:20 56 18 07:15 71 16 98 02/10/18 07:15 69 1418 06:43 105/69 14/18 06:30 36.6 70 16 105/69 (81) 97 Room Air Notes Mental Status: alert / awake / arousable, participated in evaluation Pt Amnestic to Procedure: Yes Nausea / Vomiting: adequately controlled Pain: adequately controlled Airway Patency, RR, SpO2: stable & adequate BP & HR: stable & adequate Hydration State: stable & adequate Anesthetic Complications: no major complications apparent
--- NOTE | 2018-02-10 12:52 | [facility] Operative Report ---
Operative Report Operative Date Feb 10, 2018. Pre-Operative Diagnosis RIGHT ACL TEAR Post-Operative Diagnosis RIGHT KNEE ACL TEAR, Lateral mensical tear Procedure(s) Performed Right Knee Arthroscopy, Open Revision Anterior Cruciate Ligament Reconstruction With Quad Tendon Autograft, Partial Lateral Meniscectomy, hardware removal Surgeon DR. Wisam MIGUEL Vocational Rehabilitation Supervisor Surgeon(s) LON TORRES PA-C Estimated Blood Loss 50 ML Findings Right knee ACL graft tear, lateral meniscal tear. Fluids 1500cc Specimens NONE Drains None Anesthesia Type General Regional Complication(s) none Disposition no Indications This 22-year-old white male presented to the office with complaints of right knee instability after injuring himself while playing soccer. He elected to proceed with surgical intervention after being educated about potential risks and outcomes. Preoperative imaging was obtained. He previously had right knee ACL reconstruction 11 months ago and had a successful recovery until his most recent injury. Description of Procedure Patient was administered a regional block and then taken to the operating room where he was given general anesthesia. He was prepped and draped in usual sterile fashion. Please see Dr. Miguel's operative report for specifics of the procedure. I was present for the entire case from initial patient positioning through final wound closure. Assistance was provided in arthroscopy , tissue retraction, hemostasis, graft harvest, old hardware removal, new hardware placement, and final wound closure. Patient was taken to the recovery room in satisfactory condition. I attest to the content of the Intraoperative Record and any orders documented therein. Any exceptions are noted below.
[2018-02-10 13:03] VITALS: BP 141/82; PULSE 59; O2SAT 96
== END ==
LOC: X.SURG 06:16
PROVIDERS: ATTEND Physical Medicine & Rehabilitation Sports Medicine
DX: S83.511A Sprain of anterior cruciate ligament of right knee, initial encounter (principal); S83.241A Other tear of medial meniscus, current injury, right knee, initial encounter; W03.XXXA Other fall on same level due to collision with another person, initial encounter